=== PATIENT | female | born 1970 | race Caucasian/White ===

== ENCOUNTER → 2017-08-05 14:36 | Outpatient (CLI) | payer OTHER, SELFPAY ==
[2017-08-10 12:39] LABS: HPV Reflexed? NOT INDICATED
== END ==
PROVIDERS: Visit Provider Obstetrics & Gynecology
DX: Z12.4 Encounter for screening for malignant neoplasm of cervix (principal)
CPT/HCPCS: 88175; G0145

== ENCOUNTER → 2019-12-28 15:36 | Outpatient (CLI) | payer OTHER, SELFPAY ==
[2015-02-06 18:20] VITALS: BMI 29.3
[2020-01-03 21:49] LABS: HPV Reflexed? NOT INDICATED
== END ==
PROVIDERS: Visit Provider Obstetrics & Gynecology
DX: Z12.4 Encounter for screening for malignant neoplasm of cervix (principal)
CPT/HCPCS: 36415; 88175; G0145